=== PATIENT | female | born 1935 | race Caucasian/White ===

== ENCOUNTER 2023-08-25 01:00 | Observation (INO) | payer OTHER, SELFPAY ==
[2023-08-24 21:55] VITALS: BP 208/52
[2023-08-24 22:00] VITALS: BP 185/54; BMI 25.5
[2023-08-24 22:18] LABS: % Basophils 0.7 % (0-2); % Eosinophils 2.1 % (0-6); % Immature Granulocytes 0.3 % (0-0.5); % Lymphocytes 24.3 % (20.5-51.1); % Neutrophils 65.6 % (42.2-75.2); Absolute Basophils 0.1 10^3/uL (0-0.2); Absolute Eosinophils 0.2 10^3/uL (0-0.7); Absolute Lymphocytes 1.9 10^3/uL (1.2-3.4); Absolute Monocytes 0.5 10^3/uL (0.1-0.6); Hematocrit 32.8 % (37.0-47.0); Hemoglobin 11.3 g/dL (12.0-16.0); Mean Corp Hgb Conc. 34.5 g/dL (33.0-37.0); Mean Corpuscular Hgb 30.6 pg (27.0-31.0); Mean Corpuscular Volume 88.9 fL (81.0-99.0); Mean Platelet Volume 10.4 fL (7.4-10.4); Nucleated Red Blood Cells % 0 %; Platelet Count 159 10^3/uL (130-400); Red Blood Cell Count 3.69 10^6/uL (4.20-5.40); Red Cell Dist. Width 12.4 % (11.5-14.5); White Blood Cell Count 7.7 10^3/uL (4.8-10.8)
[2023-08-24 22:28] LABS: INR 1.16; PT 14.8 Sec (11.4-14.6)
[2023-08-24 22:29] LABS: APTT 27.5 Sec (23.4-35.0)
[2023-08-24 22:30] LABS: ALT (SGPT) 21 U/L (0-35); AST (SGOT) 35 U/L (14-36); Alkaline Phosphatase 78 U/L (38-126); Blood Urea Nitrogen 27 mg/dl (7-17); Calcium 9.5 mg/dl (8.4-10.2); Carbon Dioxide 25 mmol/L (22-30); Chloride 102 mmol/L (98-107); Estimated Creatinine Clearance 31 ml/min; Glucose 97 mg/dl (70-99); Potassium 4.8 mmol/L (3.5-5.1); Sodium 137 mmol/L (135-145); Total Bilirubin 0.4 mg/dl (0.2-1.3); Total Protein 6.9 g/dl (6.3-8.2); eGFR 54.19
--- NOTE | 2023-08-24 22:51 | ED.CVA ---
History of Present Illness
General
Chief Complaint: CVA/TIA Symptoms
Source: patient
Exam Limitations: none
Time Seen by Provider: 08/24/23 21:43
Nursing documentation reviewed up to this point in time: agreed with
Onset of Stroke Symptoms
Onset of symptoms known: Yes
Date of onset of symptoms: 08/24/23
Time of onset of symptoms: 12:00
Travel History
Have you had any contact with someone who has COVID-19?: No
Do you have any symptoms of coronavirus? Fever > 100 degrees, chills, cough, shortness of breath, sore throat, loss of taste or smell, muscle aches, or headache?: No
History of Present Illness
History of Present Illness:
Patient with history hypertension, presents to ED secondary to sudden onset of difficulty with ambulation along with confusion, noted by spouse around noon this afternoon. Denies headache. Denies dizziness. Denies chest pain or shortness of
breath. Denies abdominal pain. Denies nausea, vomiting, or diarrhea. Denies difficulty with speech. Denies previous history of similar symptoms. Patient takes 81 mg aspirin daily.
Review of Systems
Review of Systems
Allergies reviewed?: Yes
All Other Systems: ROS reviewed and negative except as documented in HPI and ROS
Constitutional: Reports no symptoms
EENT: Reports no symptoms
Respiratory: Reports no symptoms
Cardiac: Reports no symptoms
ABD/GI: Reports no symptoms
Musculoskeletal: Reports no symptoms
Skin: Reports no symptoms
Neurological: Reports weakness and other (confusion)
Phy Exam
Physical Exam
Physical Exam:
Physical Exam
General: no apparent distress, not acutely ill. afebrile.
Head: nc/at. eomi
Neck: supple. no meningeal signs.
Heart: s1/s2 regular rate and rhythm, no murmur. equal radial pulses.
Lungs: no acute respiratory distress. clear bilaterally
Abdomen: normal bowel sounds. not tender. n
Neuro: alert and oriented. normal speech, though somewhat delayed. LLL motor: 4/5. sensation intact.
Skin: no rash
Psychiatric: well kept. interactive and cooperative
Extremities: no edema. no calf tenderness.
Course
Orders/Labs/Results
Orders:
Orders
08/24/23 20:16
CT Head W/o Iv Contrast Urgent
Comment:
Reason For Exam: tia symptoms
08/24/23 21:46
Electrocardiogram (*1) Stat
Reason for Study: Other
Other Reason for Exam: neuro symptoms
EKG- Treatment ONCE
08/24/23 22:10
Complete Blood Count/With Diff Urgent
Comprehensive Metabolic Panel Urgent
PTT Urgent
Prothrombin Time Urgent
08/25/23 00:23
Admit/Transfer Patient As Directed
Co-Sign Provider:
Level of Care: Observation services
Assign to:: Telemetry
Physician / Group: Bakari
Diagnosis: CVA / TIA
Reason for Telemetry: CVA/TIA
Date to Stop Telemetry: 08/28/23
Time to Stop Telemetry: 11:00
Code Status As Directed
Resuscitation Status: Full Code
08/25/23 01:26
Acetaminophen [Tylenol/Feverall] 650 mg RECTAL Q4HPRN PRN
Acetaminophen [Tylenol] 650 mg PO Q4HPRN PRN
08/25/23 01:26
Echo 2D MMode Color/Doppler Routine
Reason for Study: stroke/TIA
Case Management Consult ONCE
Case Management Consult: Discharge Planning
Comment: stroke/tia
Consult Notification Routine
Specialty to Notify: Physiatry
DIETARY CONSULT Routine
Reason for Consult: stroke/TIA
NEUROLOGY CONSULT Urgent
Consulting Provider: Monica Silva
Was physician already notified: Yes
Reason for consult: CVA / TIA
Fixing Machine Operator Urgent
MA [place] Routine
Comment:
Reason For Exam: stroke/TIA
Recent pill cam endoscopy?: No
MA Neck With Contrast Routine
Comment:
Reason For Exam: stroke/TIA
Recent pill cam endoscopy?: No
MR Brain Without Contrast Routine
Comment:
Reason For Exam: stroke/TIA
Recent pill cam endoscopy?: No
Activity As Directed
Activity Level: Ambulate
With Assistance
INT (Intravenous Needle Therapy) As Directed
NIH Stroke Scale As Directed
Directions: Per protocol
Comment: every shift and with any change in condition or mental status
Neurological Checks As Directed
Frequency: q4h
Additional Instructions:: q4h x 24h upon admission to the floor, then qshift & with any change in condition
and mental status
Patient Education As Directed
Type: Stroke education packet
Comment: provide to patient and family
Pneumatic Compression Sleeves As Directed
Type: Knee high
Swallow Screening CVA/TIA ONLY As Directed
Comment: NPO until swallowing screening completed
If patient FAILS swallow screening:: NPO, Speech Therapy consult, Aspiration Precautions
If patient PASSES swallow screening, diet:: Regular
Above diet order entered?: Yes- passed screening
Vital Signs As Directed
Frequency: Per unit guidelines
CXR2 [CR Chest - 2 Views ] Urgent
Comment:
Reason For Exam: SOB
Ot Eval And Treat Routine
Physiatry Consult Routine
Consulting Provider: Zacarias Lima
Was physician already notified: No
Reason for consult: stroke/TIA
Pt Eval And Treat Routine
Activity Level: Ambulate
With Assistance
Speech Therapy Eval & Treat Routine
DX Deep Vein Thrombosis Video Routine
08/25/23 06:00
Cardiovascular Evaluation IN AM
Glycohemoglobin (HgbA1c) Routine
08/25/23 08:00
Aspirin Chewable [Low Strength Aspirin] 81 mg PO DAILY
Clopidogrel Bisulfate [Plavix] 75 mg PO DAILY
Ezetimibe [Zetia] 10 mg PO DAILY
Losartan [Cozaar] 100 mg PO DAILY
Rosuvastatin Calcium [Crestor] 10 mg PO DAILY
08/28/23 11:00
DC Protocol for Telemetry ONCE
Abnormal Lab Results
08/24/23
22:10
RBC 3.69 L 10^6/uL
(4.20-5.40)
Hgb 11.3 L g/dL
(12.0-16.0)
Hct 32.8 L %
(37.0-47.0)
PT 14.8 H Sec
(11.4-14.6)
BUN 27 H mg/dl
(7-17)
08/24/23 22:10
08/24/23 22:10
Vital Signs
Initial and Last Documented VS:
Initial Vital Signs
Temp Pulse Resp Pulse Ox
98.4 F 59 18 97
08/24/23 20:07 08/24/23 20:07 08/24/23 20:07 08/24/23 20:07
Last Documented Vital Signs
Temp Pulse Resp BP Pulse Ox
97.8 F 61 18 171/62 95
08/25/23 01:20 08/25/23 01:20 08/25/23 01:20 08/25/23 01:20 08/25/23 01:20
MDM/Problems Addressed
MDM/Problems Addressed:
Patient is not a candidate for tenecteplase, secondary to greater than 6 hours of symptoms along with low NIH stroke score.
CT head report reviewed and discussed with patient and family.
Neurology () notified via [employer]. Will admit for further evaluation and treatment.
*Critical Care Note
Total Time (30-74mins, 75-104mins- exclusive of procedures): Not Applicable
ED Attending Note
-
Portions of this chart may have been created with voice recognition software.� Occasional wrong word or��sound alike� substitutions may have occurred due to the inherent limitations of voice recognition software.
Discharge Plan
Departure
Patient Disposition: Admit
Date of Disposition: 08/24/23
Time of Disposition: 22:59
Admit to: Telemetry
Presentation/result/management discussed w/ accepting MD/DO: Hospitalist
Discharge Problem:
Acute CVA (cerebrovascular accident)
Interventions
Interventions:
*Risk Screen - Suicide Last Done: 08/24/23 20:07
*General Assessment Last Done: 08/24/23 20:07
*Neglect/Abuse Screening Last Done: 08/24/23 20:07
ED- Fall Risk Assessment Last Done: 08/24/23 23:29
*ED COVID-19 Vaccine History Last Done: 08/24/23 23:23
*Nursing Disposition Last Done: 08/25/23 01:14
ED- Pulmonary Assessment Last Done: 08/24/23 22:12
ED- Neurological Assessment Last Done: 08/24/23 23:23
ED- Cardiac Assessment Last Done: 08/24/23 22:12
ED Swallowing Screen Last Done: 08/24/23 23:23
Discharge Date and Time
Discharge Date/Time: 08/25/23 01:17
[2023-08-24 23:00] VITALS: BP 187/60
[2023-08-25] VITALS (9 sets, daily range): BP systolic 127–177; BP diastolic 48–71; O2SAT 100; BMI 24.9
--- NOTE | 2023-08-25 00:27 | HPS.HSE ---
Family Physician
-
Family Physician: Cam Beauchamp
Chief Complaint
-
Weakness, Unsteady Gait
History of Present Illness
Patient is an 88y F with PMH significant for hypertension and ASCVD who presents to ED for evaluation of increased confusion and gait dysfunction. History obtained from patient and the family at the bedside. Son notes that he spoke with the
patient via phone yesterday and she seemed her usual self with no issues or complaints. Patient was doing and feeling well this AM according to her . She then complained that she 'did not feel well'. She was having some difficulty getting
around the house and had to stop and rest frequently. notes that she 'has seemed more forgetful' lately. It is difficult to pinpoint a window / timing for this symptom. Initially indicates that this has been gradually worsening,
but at times he indicates more abrupt change in the past day or so.
Patient called her PCP with her complaints and was directed to present to the ED. Her son showed up to bring them and noted that the patient was 'dragging' her L leg and required significant assistance to get into the car.
In the ED, patient has been resting comfortably and currently denies any complaints.
She denies any recent illnesses / symptoms including cough, fever, chest pain, abdominal pain, etc.
She denies any prior history of GA, stroke, etc.
Medical History
Past Medical History
Past Medical History: Reports Other
Additional Past Medical History:
Hypertension
ASCVD (Carotid Disease)
Past Surgical History: Reports Other
Additional Past Surgical History:
Right CEA
Social History
Tobacco: Non-smoker
Alcohol: None
Drug: None
Personal:
Living: With Family
Family History
Family History: Not pertinent
Allergies / Home Medications
Allergies reflects when Allergies were last updated in [facility] [facility].
Home Medications with original date entered in [facility] [facility]
Allergy/Medication List:
Allergies
Allergy/AdvReac Type Severity Reaction Status Date / Time
No Known Allergies Allergy Unverified 08/24/23 20:14
Home Medications
aspirin 81 mg tablet,delayed release 81 mg PO DAILY 08/24/23
ezetimibe 10 mg tablet 10 mg PO DAILY 08/24/23
losartan 100 mg tablet 100 mg PO DAILY 08/24/23
multivitamin 1 tab PO DAILY 08/24/23
rosuvastatin 10 mg tablet 10 mg PO DAILY 08/24/23
Review of Systems
-
History Source: Patient and Family
Constitutional: Reports Fatigue; Denies Fever or Chills
EENT: Denies Sore Throat
Respiratory: Reports Trouble Breathing; Denies Cough
Cardiac: Denies Chest Pain or Palpitations
Abdomen/GI: Denies Abdominal Pain, Nausea, Vomiting or Diarrhea
: Denies Dysuria or Frequency
Musculoskeletal: Denies Joint Pain or Edema
Neurological: Reports Weakness; Denies Dizzy or Headache
Psych: Denies Depression or Anxiety
Physical Exam
Vital Signs
Vital Signs
Temp Pulse Resp BP Pulse Ox
98.4 F 63 21 177/50 96
08/24/23 20:07 08/25/23 00:01 08/25/23 00:01 08/25/23 00:01 08/25/23 00:01
Physical Exam
General: Other (88y F in no acute distress.)
HEENT: Moist mucous membranes and PERRLA
Respiratory: Clear; No Wheezes, Rales or Rhonchi
Cardiac: S1/S2, Regular Rhythm and Murmur (II/ REGINO)
GI: Soft, Non Tender, Non Distended and Normal Bowel Sounds
Musculoskeletal: No Clubbing, No Cyanosis and No Edema
Neuro: Awake, Alert and Other (Minimal L hand manager of care weakness in this R-hand dominant patient. LLE weakness evident in drift with straight leg raise and weakness in dorsiflexion at the ankle. Knee extension / plantarflexion seems intact. No
appreciable sensory deficits. Somewhat impaired heel to rock testing on the L. )
Laboratory Results
-
08/24/23 22:10
08/24/23 22:10
Laboratory Results
PT 14.8 Sec (11.4-14.6) H 08/24/23 22:10
INR 1.16 08/24/23 22:10
APTT 27.5 Sec (23.4-35.0) 08/24/23 22:10
Total Bilirubin 0.4 mg/dl (0.2-1.3) 08/24/23 22:10
AST 35 U/L (14-36) 08/24/23 22:10
ALT 21 U/L (0-35) 08/24/23 22:10
Alkaline Phosphatase 78 U/L (38-126) 08/24/23 22:10
Impression/Plan
-
A/P: Patient is an 88y F with PMH significant for ASCVD and hypertension who presents to ED complaining of increased confusion and ambulatory dysfunction noted at home today.
CVA / TIA
- Observe overnight for further evaluation and treatment.
- CT done in the ED shows old lacunar infarct (R basal ganglia) and questionable subacute infarct in the L parietal area.
- Subacute / possible lesion is not consistent with her current presentation.
- Patient with no clinical history of prior CVA, but has poorly controlled HTN and known history of carotid disease s/p prior R CEA.
- Check MRI / MRA brain in the AM for further evaluation.
- Follow neuro exam for any changes.
- Neurology evaluation in the AM.
- PT / OT / PM&R evaluations in the AM.
- Continue ASA and add Plavix for now.
- Continue statin.
- Allow some degree of hypertension for now, but adjust med regimen as needed for goal of normotension prior to discharge.
Hypertension
- Poorly controlled at baseline per patient.
- Continue losartan for now.
- As noted above, adjust regimen for improved BP control prior to discharge.
Memory Impairment
- Suspect this is recognition of dementia - though onset / timing is not at all clear.
- Certainly imaging findings with prior / clinically unrecognized strokes could support vascular dementia possibility.
- Follow for any new / worsening symptoms.
- Neuro evaluation as noted above.
DVT Prophylaxis: SCDs
Code Status: Full
--- NOTE | 2023-08-25 01:20 | PTCARENOTE ---
Pt arrived to unit from ED and ambulated with x1 assist standby from stretcher into bed. Pt is AAOx3, no complaints of pain. Pt oriented to room, call sierra within reach.
--- NOTE | 2023-08-25 08:35 | CON.NEURO ---
Consultation
Order
Date of Consultation: 08/25/23
Reason for Consult: Stroke
CC: none
HPI: This is an 88-year-old RH woman who presented to [facility] on August 24, 2023 with worsening of encephalopathy and ambulatory dysfunction.
According to the patient she developed an acute left leg weakness and difficulty walking that began yesterday morning. She denies any numbness, change in speech, vision or issues with her left arm. The patient also experienced left knee pain and a
cramp in her left leg this morning. No reports of radicular back pain, recent fall.
ER VS: 208/52, 59, afebrile
EKG: sinus bradycardia, QTc Int : 455 ms
PDMP: none
CT head�chronic right basal ganglia infarct, left parietal lobe subcortical hypodensity
Labs: Normal WBCs, sodium, creatinine, platelets�159
PMH:R ICA stenosis, HTN, DLP, OA
PSH: R CEA, bilateral cataract surgery
SH: , non-smoker; retired RN; independent in ADL
FH:father-AD
All: NKDA
ROS:Constitutional: Negative. Negative for chills, fever and unexpected weight change.
HENT: Positive for hearing impairment
Eyes: Negative. Negative for photophobia, pain and visual disturbance.
Respiratory: Negative for cough, choking and shortness of breath.
Cardiovascular: Negative for chest pain, palpitations and leg swelling.
Gastrointestinal: Negative for abdominal pain and vomiting.
Endocrine: Negative. Negative for cold intolerance.
Genitourinary: Negative for dysuria, flank pain and urgency.
Musculoskeletal: Negative for back pain, gait problem, neck pain and neck stiffness.
Skin: Negative for rash.
Allergic/Immunologic: Negative. Negative for immunocompromised state.
Neurological: Positive for left leg weakness,
Psychiatric/Behavioral: Negative for behavioral problems, confusion and hallucinations.
General: Well developed. In no acute distress.
Cardio: Regular rate and rhythm without murmur. Extremities are without cyanosis or edema.
Neuro:
Mental Status: Alert, oriented to person, place, month, year, not to date. Preserved attention. Impaired comprehension. Follows simple requests consistently. No hemineglect.
Cranial Nerves: . Pupils are equally round, surgical. EOMs full. Visual sexton full to confrontation. No ptosis. No nystagmus. V1-V3 intact to light touch and pinprick bilaterally, symmetric. Face symmetric. Impaired hearing AU. The palate
elevated well. SCMs and traps 5/5. Tongue midline. No dysarthria.
Motor: Normal bulk and tone. No pronator or arm drift. Strength 5/5 throughout. No clonus.
Reflexes: 3+
Sensory: Normal vibration at the toes
Coordination: No dysmetria or tremor.
Gait: deferred
Assessment and Plan:
I. Hypertensive emergency.
II. Left parietal hypodensity, rule out subacute infarct
III. History of right CEA
IV. Vascular encephalopathy
-Continue Telemetry monitoring.
-Aspiration precautions.
-CTA head and neck
-Brain MRI without azeb
-Cautious lowering of BP by approximately 15 % during the first 24 hours is SBP >220 mmHg or diastolic blood pressure >120 mmHg;
-TTE with bubble studies
-Continue ASA 81 mg QD
-Lipitor 40 mg QHS.
-Please check HbA1C, LDL, vitamin B12, TFTs
-DVT prophylaxis.
I personally reviewed all radiology and labs along with past medical records pertinent to current medical problems. Total time spent in patient care is 60 minutes.
Thank you for allowing us to participate in the care of this patient. We will continue to follow. Please do not hesitate to contact us with any questions or concerns.
Subjective/Objective
Subjective Data
Date of Service: August 25, 2023
Objective Data
Vital Signs
Temp Pulse Resp BP Pulse Ox
36.4 C 60 16 160/71 98
08/25/23 07:20 08/25/23 07:20 08/25/23 07:20 08/25/23 07:20 08/25/23 07:20
Lab Results
08/24/23 22:10
08/24/23 22:10
PT 14.8 Sec (11.4-14.6) H 08/24/23 22:10
INR 1.16 08/24/23 22:10
APTT 27.5 Sec (23.4-35.0) 08/24/23 22:10
Sodium 137 mmol/L (135-145) 08/24/23 22:10
Potassium 4.8 mmol/L (3.5-5.1) 08/24/23 22:10
BUN 27 mg/dl (7-17) H 08/24/23 22:10
Glucose 97 mg/dl (70-99) 08/24/23 22:10
Calcium 9.5 mg/dl (8.4-10.2) 08/24/23 22:10
Patient Allergies
No Known Allergies Allergy (Unverified 08/24/23 20:14)
Medications
-
Active Medications
Generic Name Dose Route Start Last Admin
Trade Name Freq PRN Reason Stop Dose Admin
Acetaminophen 650 mg 08/25/23 01:26
Acetaminophen 650 Mg Rectal Suppository RECTAL 09/22/23 01:25
Q4HPRN PRN
ESQUIVEL, mild pain, or temp >100.4F
Acetaminophen 650 mg 08/25/23 01:26
Acetaminophen 325 Mg Tablet PO 09/22/23 01:25
Q4HPRN PRN
ESQUIVEL, mild pain, or temp >100.4F
Aspirin 81 mg 08/25/23 08:00
Aspirin 81 Mg Chewable Tablet PO 09/22/23 07:59
DAILY GURINDER
Clopidogrel Bisulfate 75 mg 08/25/23 08:00
Clopidogrel 75 Mg Tablet PO 09/22/23 07:59
DAILY GURINDER
Ezetimibe 10 mg 08/25/23 08:00
Ezetimibe (Zetia) 10 Mg Tablet PO 09/22/23 07:59
DAILY GURINDER
Losartan Potassium 100 mg 08/25/23 08:00
Losartan 100 Mg Tablet PO 09/22/23 07:59
DAILY GURINDER
Rosuvastatin Calcium 10 mg 08/25/23 08:00
Rosuvastatin (Crestor) 10 Mg Tablet PO 09/22/23 07:59
DAILY GURINDER
Sodium Chloride 0 flush 08/25/23 02:00
Sodium Chloride 0.9% (Flush) Syringe IV 09/22/23 01:59
PER PROTOCOL GURINDER
Home Medications
Medication Instructions Recorded
aspirin 81 mg tablet,delayed 81 mg PO DAILY 08/24/23
release
ezetimibe 10 mg tablet 10 mg PO DAILY 08/24/23
losartan 100 mg tablet 100 mg PO DAILY 08/24/23
multivitamin 1 tab PO DAILY 08/24/23
rosuvastatin 10 mg tablet 10 mg PO DAILY 08/24/23
Vital Signs and Labs
-
Vital Signs and Labs:
Vital Signs
Temp Pulse Resp BP Pulse Ox
36.4 C 60 16 160/71 98
08/25/23 07:20 08/25/23 07:20 08/25/23 07:20 08/25/23 07:20 08/25/23 07:20
Lab Results
08/24/23 22:10
08/24/23 22:10
PT 14.8 Sec (11.4-14.6) H 08/24/23 22:10
INR 1.16 08/24/23 22:10
APTT 27.5 Sec (23.4-35.0) 08/24/23 22:10
Sodium 137 mmol/L (135-145) 08/24/23 22:10
Potassium 4.8 mmol/L (3.5-5.1) 08/24/23 22:10
BUN 27 mg/dl (7-17) H 08/24/23 22:10
Glucose 97 mg/dl (70-99) 08/24/23 22:10
Calcium 9.5 mg/dl (8.4-10.2) 08/24/23 22:10
LDL Cholesterol, Calc 60 mg/dl 08/25/23 06:52
Home Medications
-
Home Medications
aspirin 81 mg tablet,delayed release 81 mg PO DAILY 08/24/23
ezetimibe 10 mg tablet 10 mg PO DAILY 08/24/23
losartan 100 mg tablet 100 mg PO DAILY 08/24/23
multivitamin 1 tab PO DAILY 08/24/23
rosuvastatin 10 mg tablet 10 mg PO DAILY 08/24/23
Medications
-
Medications:
Generic Name Dose Route Start Last Admin
Trade Name Freq PRN Reason Stop Dose Admin
Acetaminophen 650 mg 08/25/23 01:26
Acetaminophen 650 Mg Rectal Suppository RECTAL 09/22/23 01:25
Q4HPRN PRN
ESQIUVEL, mild pain, or temp >100.4F
Acetaminophen 650 mg 08/25/23 01:26
Acetaminophen 325 Mg Tablet PO 09/22/23 01:25
Q4HPRN PRN
ESQUIVEL, mild pain, or temp >100.4F
Aspirin 81 mg 08/25/23 08:00 08/25/23 09:09
Aspirin 81 Mg Chewable Tablet PO 09/22/23 07:59 81 mg
DAILY GURINDER Administration
Clopidogrel Bisulfate 75 mg 08/25/23 08:00 08/25/23 09:09
Clopidogrel 75 Mg Tablet PO 09/22/23 07:59 75 mg
DAILY GURINDER Administration
Ezetimibe 10 mg 08/25/23 08:00 08/25/23 09:09
Ezetimibe (Zetia) 10 Mg Tablet PO 09/22/23 07:59 10 mg
DAILY GURINDER Administration
Losartan Potassium 100 mg 08/25/23 08:00 08/25/23 09:09
Losartan 100 Mg Tablet PO 09/22/23 07:59 100 mg
DAILY GURINDER Administration
Rosuvastatin Calcium 10 mg 08/25/23 08:00 08/25/23 09:09
Rosuvastatin (Crestor) 10 Mg Tablet PO 09/22/23 07:59 10 mg
DAILY GURINDER Administration
Sodium Chloride 0 flush 08/25/23 02:00
Sodium Chloride 0.9% (Flush) Syringe IV 09/22/23 01:59
PER PROTOCOL GURINDER
[2023-08-25] MEDS: COZAAR 100 MG PO (09:09)
[2023-08-25] MEDS: LOW STRENGTH ASPIRIN 81 MG PO (09:09)
[2023-08-25] MEDS: CRESTOR 10 MG PO (09:09)
[2023-08-25] MEDS: PLAVIX 75 MG PO (09:09)
[2023-08-25] MEDS: ZETIA 10 MG PO (09:09)
--- NOTE | 2023-08-25 09:22 | PTOTSP ---
ST Evaluation
Oropharyngeal function appears intact at the bedside. Speech/language at reported baseline. Pt reports memory decline however no worse than what it is at baseline.
Pt received awake/alert oriented x4 at the bedside. Verbalized feeling upset due to finding stroke handouts at the bedside. Verbal support provided. Pt reports memory decline however no worse than what it is at baseline. Education re: pursue
outpatient speech-cognitive/memory therapy as needed.
HOB raised upright for PO trials of puree, regular solids and thin liquids. Demo functional mastication and bolus was orally cleared. Thin liquids by straw sip swallow appears prompt. No overt s/sx of aspiration observed.
Recommend
1. Continue Regular Solids / Thin liquids
2. Standard aspiration precautions
3. Meds oral per pt preference and RN discretion
4. No acute SHADOWGRAPH OPERATOR needs - advised outpatient follow up for cog/memory as indicated
[2023-08-25 10:12] LABS: HDL Cholesterol 74 mg/dl; LDL Cholesterol, Calculated 60 mg/dl; Total Cholesterol 142 mg/dl (50-199); Triglyceride 44 mg/dl (10-149); Very Low Density Lipoprotein 8 mg/dl (0-30)
--- NOTE | 2023-08-25 11:27 | W.PN.HOSP.TC ---
Today's Communication/Plan
-
Cervical spine MRI
Neurosurgery consult
PT/OT
Assessment / Plan
Assessment / Plan
Gen-AAOx3, NAD
HEENT-NC, AT, anicteric, clear oral mm
Neck-supple
CV-reg, no M, +S1/S2
Lungs-clear B/L
Abd-soft, NT, ND
Ext-no edema
Musculoskeletal-no cyanosis, clubbing
Skin-warm and dry
Neuro-left lower extremity weakness
Psych-calm, cooperative
Left lower extremity weakness -no evidence of stroke on brain MRI. Neurology input noted.
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 Will check cervical spine MRI. Consult neurosurgery. Discussed with neurology.
Essential hypertension with hypertensive urgency -blood pressure improving. She does not check her blood pressure at home. Denies missing doses of her blood pressure meds.
Hyperlipidemia - continue Crestor.
Carotid artery disease -history of right carotid endarterectomy.
Normocytic anemia -unknown etiology or acuity. Monitor for now.
Cognitive dysfunction -likely early dementia versus mild cognitive dysfunction. Will need outpatient follow-up.
Full code
PT/OT
Anticipated Discharge: 24 - 48 hours
Subjective/Interval History
-
Date of Service: August 25, 2023
Patient seen and examined. No complaints.
Objective Data
-
Vital Signs:
Vital Signs
Temp Pulse Resp BP Pulse Ox
97.6 F 60 16 160/71 98
08/25/23 07:20 08/25/23 07:20 08/25/23 07:20 08/25/23 07:20 08/25/23 07:20
I&O
08/24/23 08/25/23 08/26/23
06:59 06:59 06:59
Intake Total 120 / 120
Output Total 240 / 240
Balance -120 / -120
Review of Systems
-
History Source: Patient
All other systems: Reviewed and negative
[2023-08-25 12:36] LABS: TSH Reflex To Free T4 3.92 uIU/ml (0.47-4.68)
[2023-08-25 12:55] LABS: Vitamin B12 548 pg/ml (239-931)
[2023-08-25 14:23] LABS: Glycohemoglobin (HgbA1c) 5.6 % (4.0-5.6)
--- NOTE | 2023-08-25 15:06 | CON.NS ---
Consultation
-
Date/Time Consultation Performed: 08/25/2023, 15:06
Performing Provider: Angie
Chief Complaint
History of Present Illness
This neurosurgical consultation an 80-year-old female the past medical history of hypertension, ASCVD, who presents with with increased confusion and gait dysfunction. According to chart report, patient had acute onset of feeling 'unwell'. She was
having difficulty ambulating around the house. Additionally, there also reports the patient may be having difficulty with memory. This may be gradually worsening.Patient was evaluated by neurology, and advised to undergo a brain MRI. Brain MRI
was negative for acute stroke. However, there is noted possible cervical stenosis with cord compression on the T1 brain sagittal cuts.
Patient seen and examined. Daughter is at bedside. is at bedside. Patient reports that she presents to the hospital more so because of difficulty ambulating, secondary to focal left leg and specifically knee pain. She reports that she
was doing some increased work out in the yard over the last several days, and she believes that this is what was contributing to her difficulty ambulating. She does admit that she has left arm and left leg weakness, but she cannot recall whether
this is new or old. She denies any obvious difficulties with neck pain, or upper extremity radiculopathy. She denies any dexterity issues using her hands, but does state that she has trouble threading her needle but feels that this is secondary to
vision issues. She denies any recent falls.
Review of Systems
-
10 point review of systems was performed, which included constitutional, ENT, cardiovascular, respiratory, GI, , neurologic, endocrinology, hematologic, psychiatric, musculoskeletal, which was negative, except for stated in HPI.
Medication and Allergies
Home Medications
Home Medications
Medication Instructions Recorded
aspirin 81 mg tablet,delayed 81 mg PO DAILY 08/24/23
release
ezetimibe 10 mg tablet 10 mg PO DAILY 08/24/23
losartan 100 mg tablet 100 mg PO DAILY 08/24/23
multivitamin 1 tab PO DAILY 08/24/23
rosuvastatin 10 mg tablet 10 mg PO DAILY 08/24/23
Allergies
Allergies
Allergy/AdvReac Type Severity Reaction Status Date / Time
No Known Allergies Allergy Unverified 08/24/23 20:14
Physical Exam
-
Exam:
Awake, alert, pleasant
Pupils are equal and reactive to light.
Extraocular movements are full without any nystagmus.
Face is symmetric
Tongue is midline
Motor: 5/5 strength in right arm and right leg. 4+/5 strength in left arm and left leg.
No evidence of pronator drift.
Reflexes are 2+ and symmetric bilaterally in upper lower extremities.
Sensation to light touch is intact bilaterally
No evidence of clonus or Jesse sign
Head is normocephalic atraumatic
Neck is supple
Breathing is nonlabored
Regular rate and rhythm
Abdomen is soft, nondistended
Extremities are warm.
Exams:� MR Brain Without Contrast
CPT: [id number]
PROCEDURE: MR Brain Without Contrast
CLINICAL INDICATION: Sudden onset of confusion and difficulty with ambulation. Acute stroke. Transient ischemic attack (TIA). Acute cerebrovascular accident. Hypertension.
TECHNIQUE: An MRI examination of the brain was performed without intravenous contrast on a 1.5 Frannie magnet. 3-D thin section T1 gradient echo, axial diffusion, axial T2 gradient echo, axial T2, axial FLAIR , and coronal T2-weighted imaging
sequences were obtained.
COMPARISON: Comparison is made with a noncontrast CT examination of the head performed 08/24/2023.
FINDINGS:
There is no MRI evidence for restricted diffusion to suggest acute infarction.
There is a large amount of low T1 and high T2/FLAIR signal intensity in the white matter of the left parietal lobe. There is mild white matter signal abnormality in the right parietal lobe. There is a mild to moderate amount of periventricular white
matter signal abnormality in the frontal lobes. There is asymmetric decreased T1 and hyperintense T2/FLAIR signal in the left putamen.
There is mild to moderate diffuse cerebral and cerebellar volume loss. There is mild ex vacuo dilatation of the ventricular system. There is no midline shift or herniation. There is no MRI evidence for acute or chronic intracranial hemorrhage. There
are no extra-axial fluid collections. Both intracranial vertebral arteries are tortuous causing mild compression on the sides of the medulla.
There are bilateral lens replacements in the globes. There is mild mucosal thickening throughout the ethmoid air cells and in the left maxillary sinus. The mastoid air cells are clear.
There is moderate thickening of the transverse ligament posterior to the dens. There is a small to moderate-sized central disc herniation at C3/C4. There is severe discogenic degenerative disease at C4/C5 and C5/C6. There is a large central
disc-osteophyte complex at C5/C6 causing moderate to severe spinal cord compression and central canal stenosis. A central disc-osteophyte complex at C4/C5 causes mild spinal cord compression and central canal stenosis.
IMPRESSION:
1. � No MRI evidence for acute infarct or intracranial hemorrhage.
2. � Moderate white matter leukoaraiosis in the frontal and parietal lobes (greatest in the left parietal lobe).
3. � Mild signal abnormality in the left putamen which could be secondary to chronic ischemia.
4. � Mild to moderate diffuse cerebral volume loss.
5. � SEVERE DISCOGENIC DEGENERATIVE DISEASE at C5/C6 with a large disc-osteophyte complex causing MODERATE to SEVERE SPINAL CORD COMPRESSION and CENTRAL CANAL STENOSIS.
I reviewed the imaging studies, and agree with report above. There is suggestion of disc osteophyte complex at C5-C6 causing cord impingement.
Problems
-
Problem Status Onset Code
Acute CVA (cerebrovascular accident) I63.9
Assessment / Plan
-
This is an 88-year-old female who presents with progressive cognitive difficulties, memory difficulties, ambulatory dysfunction, with acute on subacute decline of ambulatory function. Brain MRI was negative for stroke. However, on T1 sagittal cuts
there was note made of possible cervical cord compression.
Recommend MRI of the cervical spine to better evaluate for cervical spondylosis/stenosis.
Extensive discussion was held with the patient, the patient's daughter at bedside. Patient cannot recall whether or not her ambulatory dysfunction is mainly secondary to overall weakness of the left leg, or pain related weakness of the left leg. I
have advised her to continue to monitor this, especially when working with physical therapy.
If the patient has difficulty ambulating more so related to pain in the left leg/knee, then unlikely that cervical spondylotic changes/stenosis would be acutely causing the symptoms.
--- NOTE | 2023-08-25 17:01 | CM ---
inspection manager reviewed patient's chart and met with patient spouse and daughter at bedside, GAN letter provided, patient lives with spouse in a 2 story home, patient is independent with adl's and ambulation, no dme, hospice case manager reviewed physical
therapy with patient, spouse and daughter and reviewed recommendations of skilled placement and patient refuses to go to a skilled facility. Patient has prescription plan and uses [facility] pharmacy.
PCP: Dr. Beauchamp
Plan; Patient wants to return to home at discharge.
[2023-08-26 03:28] VITALS: BP 154/56
[2023-08-26 07:00] VITALS: BP 151/60
[2023-08-26] MEDS: PLAVIX 75 MG PO (08:35)
[2023-08-26] MEDS: CRESTOR 10 MG PO (08:35)
[2023-08-26] MEDS: LOW STRENGTH ASPIRIN 81 MG PO (08:35)
[2023-08-26] MEDS: ZETIA 10 MG PO (08:35)
[2023-08-26] MEDS: COZAAR 100 MG PO (08:42)
--- NOTE | 2023-08-26 13:17 | W.PN.NEURO.1 ---
Today's Communication / Plan
-
.
Subjective/Objective
Subjective Data
Date of Service: August 26, 2023
Ms. Lira reports no complaints. No recurrent left leg weakness since admission.
Brain MRI showed no acute abnormalities
MRA head and neck�no hemodynamically significant stenosis.
C spine MRI wo [facility](08/26/2023)-severe central spinal canal stenosis at C5-6 with cord compression.
Hemoglobin A1c�5.6, LDL�60
Tele-NSR
PMH: C5-C6 compressive myelopathy, h/o R ICA stenosis, HTN, DLP, OA
PSH: R CEA, bilateral cataract surgery
SH: , non-smoker; retired RN; independent in ADL
FH:father-AD
All: NKDA
ROS:Constitutional: Negative. Negative for chills, fever and unexpected weight change.
HENT: Positive for hearing impairment
Eyes: Negative. Negative for photophobia, pain and visual disturbance.
Respiratory: Negative for cough, choking and shortness of breath.
Cardiovascular: Negative for chest pain, palpitations and leg swelling.
Gastrointestinal: Negative for abdominal pain and vomiting.
Endocrine: Negative. Negative for cold intolerance.
Genitourinary: Negative for dysuria, flank pain and urgency.
Musculoskeletal: Negative for back pain, gait problem, neck pain and neck stiffness.
Skin: Negative for rash.
Allergic/Immunologic: Negative. Negative for immunocompromised state.
Neurological: Positive for left leg weakness,
Psychiatric/Behavioral: Negative for behavioral problems, confusion and hallucinations.
�
�
General: Well developed. In no acute distress.
Cardio: Regular rate and rhythm without murmur. Extremities are without cyanosis or edema.
Neuro:
Mental Status: Alert, oriented to person, place, month, year, not to date.� Preserved attention.� Impaired comprehension.� Follows simple requests consistently.� No hemineglect.
Cranial Nerves: . Pupils are equally round, surgical.� EOMs full.� Visual sexton full to confrontation.� No ptosis.� No nystagmus.� V1-V3 intact to light touch and pinprick bilaterally, symmetric.� Face symmetric.� Impaired hearing AU.� The palate
elevated well.� SCMs and traps 5/5.� Tongue midline.� No dysarthria.
Motor:� � � � Normal bulk and tone.� No pronator or arm drift.� Strength 5/5 throughout. No clonus.
Reflexes: � � � � � 3+ bilateral plantar response�extensor
Coordination: No dysmetria or tremor.�
Gait: � � � � � deferred
Assessment and Plan:
�
I.� TIA. Hypertensive emergency.�
II. C5-C6 compressive cervical myelopathy.
III.� History of right CEA
IV. Mild encephalopathy
-Continue Telemetry monitoring.
-Fall precautions.
-Continue ASA 81 mg QD
-Plavix 75 mg once a day for 3 weeks
-Lipitor 40 mg QHS.
-TTE
-Cardiac consult�OP Holter monitoring
-neurosurgery follow up
-DVT prophylaxis.
I personally reviewed all radiology and labs along with past medical records pertinent to current medical problems. Total time spent in patient care is 35 minutes.
Objective Data
Vital Signs
Temp Pulse Resp BP Pulse Ox
36.8 C 63 18 151/60 96
08/26/23 07:00 08/26/23 07:00 08/26/23 07:00 08/26/23 07:00 08/26/23 07:00
Lab Results
08/24/23 22:10
08/24/23 22:10
PT 14.8 Sec (11.4-14.6) H 08/24/23 22:10
INR 1.16 08/24/23 22:10
APTT 27.5 Sec (23.4-35.0) 08/24/23 22:10
Sodium 137 mmol/L (135-145) 08/24/23 22:10
Potassium 4.8 mmol/L (3.5-5.1) 08/24/23 22:10
BUN 27 mg/dl (7-17) H 08/24/23 22:10
Glucose 97 mg/dl (70-99) 08/24/23 22:10
Calcium 9.5 mg/dl (8.4-10.2) 08/24/23 22:10
LDL Cholesterol, Calc 60 mg/dl 08/25/23 06:52
Vitamin B12 548 pg/ml (297-261) 08/24/23 22:10
Patient Allergies
No Known Allergies Allergy (Unverified 08/24/23 20:14)
--- NOTE | 2023-08-26 13:27 | W.PN.HOSP.TC ---
Addendum entered and electronically signed by Uday Goode DO 08/26/23 15:38:
Dr Angie mcintyre with discharge today, outpatient follow up.
Original Note:
Today's Communication/Plan
-
Await neurosurgery input
Assessment / Plan
Assessment / Plan
Gen-AAOx3, NAD
HEENT-NC, AT, anicteric, clear oral mm
Neck-supple
CV-reg, no M, +S1/S2
Lungs-clear B/L
Abd-soft, NT, ND
Ext-no edema
Musculoskeletal-no cyanosis, clubbing
Skin-warm and dry
Neuro-left lower extremity weakness
Psych-calm, cooperative
TIA -left lower extremity weakness resolved. Brain MRI negative for acute stroke. Neurology recommending outpatient it systems engineer, TTE. Dual antiplatelet therapy for 3 weeks then discontinue Plavix and continue aspirin. Continue rosuvastatin.
I requested an outpatient it systems engineer via [place] text to Dr. Evan Patel.
Cervical spinal cord compression -cervical spine MRI confirms severe central canal stenosis due to moderate-sized central disc herniation with severe cord compression of C5-6 with associated myelopathy and moderate to severe bilateral foraminal
narrowing. Broad-based disc bulge and soft and hard disc protrusion at C4-5 with mild cord compression. Awaiting neurosurgery input.
Essential hypertension with hypertensive urgency -blood pressure improving. She does not check her blood pressure at home. Denies missing doses of her blood pressure meds.
Hyperlipidemia - continue Crestor.
Carotid artery disease -history of right carotid endarterectomy.
Normocytic anemia -unknown etiology or acuity. Monitor for now.
Cognitive dysfunction -likely early dementia versus mild cognitive dysfunction. Will need outpatient follow-up.
Full code
PT/OT -recommendation is SNF but patient is refusing and wants to go home to take care of her elderly .
Anticipated Discharge: Within 24 hours
Subjective/Interval History
-
Date of Service: August 26, 2023
Patient seen and examined. No complaints. Eager to go home.
Objective Data
-
Vital Signs:
Vital Signs
Temp Pulse Resp BP Pulse Ox
98.2 F 63 18 151/60 96
08/26/23 07:00 08/26/23 07:00 08/26/23 07:00 08/26/23 07:00 08/26/23 07:00
I&O
08/25/23 08/26/23 08/27/23
06:59 06:59 06:59
Intake Total 120 / 120 1800 / 1800
Output Total 240 / 240
Balance -120 / -120 1800 / 1800
Review of Systems
-
History Source: Patient
All other systems: Reviewed and negative
--- NOTE | 2023-08-26 14:51 | CM ---
Patient seen bedside with daughter and in room.
PT recommending skilled rehab, however patient wants home.
Discussed options and [facility] chosen.
Referral placed.
Plan: home with [facility]
[2023-08-26 15:00] VITALS: BP 161/54
--- NOTE | 2023-08-26 15:34 | PN.NS ---
Subjective
-
Patient seen examined. Both daughter, and son are at bedside. Patient sitting in chair. Patient continues to be unable to recall whether her gait instability/difficulty with ambulating when she presented with secondary to pain, or weakness.
Additional history obtained from patient's son, who witnessed the incident, reports that mother was dragging left leg.
Physical Exam
-
Exam:
Exam:
Awake, alert, pleasant
Pupils are equal and reactive to light.
Extraocular movements are full without any nystagmus.
Face is symmetric
Tongue is midline
Motor: 5/5 strength in right arm and right leg.� 4+/5 strength in left arm and left leg.
No evidence of pronator drift.
Reflexes are 2+ and symmetric bilaterally in upper lower extremities.
Sensation to light touch is intact bilaterally
No evidence of clonus or Jesse sign
Head is normocephalic atraumatic
Neck is supple
Breathing is nonlabored
Regular rate and rhythm
Abdomen is soft, nondistended
Extremities are warm.
Exams:� MR Cervical Spine Without
CPT: [id number]
PROCEDURE: MR Cervical Spine Without
CLINICAL INDICATION: Follow-up to brain MRI which described severe degenerative change in the cervical spine causing central canal stenosis and cord compression.
TECHNIQUE: Unenhanced MRI of the cervical spine was performed. Images were obtained in the sagittal plane with T1 and T2 weighting, and with T2 weighted gradient echo technique and T2 weighting in the oblique axial plane. Scanned on a 1.5 Frannie
magnet.
COMPARISON: Brain MRI the day before.
FINDINGS:
The vertebral bodies are normal in height and configuration without fracture.
There is moderate to severe disk narrowing at C4-5, C5-6 and C6-7, with spur formation both anteriorly and posteriorly. There is mild anterior listhesis of T2 on T3, with disk bulging and T3 on T4, with mild disk bulging.
Craniocervical junction is patent.
C2-C3: No disk herniation. Mild facet arthropathy.
C3-C4: Moderate broad-based diffuse disk bulge and a tiny central shallow disk protrusion. No cord compression. Facet and uncovertebral hypertrophy with moderate to severe left foraminal narrowing.
C4-C5: There is broad-based diffuse disk bulge, with soft and hard disk protrusion diffusely flattening the ventral surface of the cord. Mild central canal stenosis. Facet and uncovertebral hypertrophy contribute to mild foraminal narrowing
bilaterally. Right greater than left.
C5-C6: As noted on the brain MRI the day before there is a moderate-sized central disk herniation causing cord compression, severe, and severe central canal stenosis. There is uncovertebral and facet hypertrophy contributing to moderate to severe
bilateral foraminal narrowing left greater than right. Myelopathy noted.
C6-C7: There is moderate broad-based diffuse soft and hard disk protrusion diffusely. This flattens the ventral surface of the cord causing cord compression. There is mild bilateral foraminal narrowing.
C7-T1: No focal disk herniation. The exit foramen are patent. Probable small perineural cyst on the left.
The rest of the cervical cord is normal in caliber without compression or myelopathy.
IMPRESSION:
1. � There is severe central canal stenosis due to moderate-sized central disk herniation with severe cord compression at C5-6, with associated myelopathy and moderate to severe bilateral foraminal narrowing.
2. � Broad-based disk bulge and soft and hard disk protrusion at C4-5 with mild cord compression.
3. � Tiny central shallow disk protrusion at C3-4 without cord compression. Moderate to severe left foraminal narrowing.
4. � Broad-based soft and hard disk protrusion diffusely at C6-7 with mild cord compression.
5. � Disc bulging at T2-3, may cause minimal cord compression. No axial images at this level.
Electronically signed by Kimberly Ocampo MD 08/26/2023 12:55 PM
I personally reviewed the MRI images, and agree with the report above. There is significant disc osteophyte complex at C5-C6 which causes cord signal changes and spinal cord edema at this level.There is an additional discussion for complex to see
67, which also causes mild to moderate cord compression.
Problems
-
Problem Status Onset Code
Acute CVA (cerebrovascular accident) I63.9
Assessment / Plan
-
This is an 88-year-old female who presents with progressive cognitive difficulties, memory difficulties, ambulatory dysfunction, with acute on subacute decline of ambulatory function. Brain MRI was negative for stroke. However, on T1 sagittal cuts
there was note made of possible cervical cord compression.
MRI results were thoroughly reviewed with the patient, patient's , and patient's 2 children. I discussed with him that her MRI demonstrates severe spinal cord compression secondary to spondylosis at C5-C6, C6-C7. Ultimately, this would
require surgical decompression. However, the patient reports that she is unable to recall whether her symptoms at presentation were acute or have been subacute in nature. She is unable to tell me, today, whether or not her gait has returned to
baseline definitively. This is because she has not been able to ambulate for prolonged distances. I have advised her and her family to closely monitor after discharge, and to initiate physical therapy. I have advised her to follow-up with me in 4
weeks, or sooner should her symptoms progress or worsen. If indeed she continues to have persistent symptoms of left-sided weakness, and symptomatology consistent with myelopathy, she will benefit from cervical decompression and fusion. I have
also advised her of the risks of falling and foregoing surgery, which could result in quadriparesis. She and family expressed understanding of this and are agreeable to follow-up as outpatient.
Patient can go home per my specialty: Today
Today's Communication
-
Discussed thoroughly with hospitalist, nurse, patient's children, patient, and at bedside.
--- NOTE | 2023-08-26 15:39 | W.DS.TRANS ---
DC Summary - Bar Finish Operator
-
Discharge Instructions:
Discharge Diagnosis/Procedures Transient ischemic attack, cervical spinal cord
stenosis
Diet Low Cholesterol,Low Fat
Activity As tolerated
Driving Restrictions As prior to admission
Bathing Restrictions None
Other Services PT
Instructions:
Stand-Alone Forms:
Changes to Home Medications: No
Discharge Medications:
DC Medications w/original date entered in [employer]
aspirin 81 mg tablet,delayed release 81 mg PO DAILY Blood Clot Prevention/Tx 08/24/23
ezetimibe 10 mg tablet 10 mg PO DAILY High Cholesterol 08/24/23
losartan 100 mg tablet 100 mg PO DAILY Blood Pressure 08/24/23
multivitamin 1 tab PO DAILY Supplement 08/24/23
rosuvastatin 10 mg tablet 10 mg PO DAILY High Cholesterol 08/24/23
clopidogrel 75 mg tablet 75 mg PO DAILY #19 tabs 08/26/23
Home Medication Changes
Pending Results: No
== END 2023-08-26 18:40 | disposition home health service (06) ==
LOC: 4 WEST ACU 01:00
PROVIDERS: ADMITTING PHYSICIAN Hospitalist; ATTENDING PHYSICIAN Hospitalist; CONSULT PHYSICIAN Psychiatry & Neurology Neurology; EMERGENCY PHYSICIAN Emergency Medicine; FAMILY PHYSICIAN Family Medicine; OTHER PHYSICIAN Neurological Surgery
DX: G45.9 Transient cerebral ischemic attack, unspecified (principal); R41.0 Disorientation, unspecified; I11.9 Hypertensive heart disease without heart failure; I16.0 Hypertensive urgency; R26.2 Difficulty in walking, not elsewhere classified; R53.1 Weakness; I25.10 Atherosclerotic heart disease of native coronary artery without angina pectoris; R00.1 Bradycardia, unspecified; I16.1 Hypertensive emergency; E78.5 Hyperlipidemia, unspecified; D64.9 Anemia, unspecified; M25.78 Osteophyte, vertebrae; M50.022 Cervical disc disorder at C5-C6 level with myelopathy; M48.02 Spinal stenosis, cervical region; Z79.82 Long term (current) use of aspirin; G93.40 Encephalopathy, unspecified; Z79.02 Long term (current) use of antithrombotics/antiplatelets
CPT/HCPCS: 70450; 70544; 70548; 70551; 71046; 72141; 80053; 80061; 82607; 83036; 84443; 85025; 85610; 85730; 92610; 93005; 97163; 97166; 99285; A9585; G0378

== ENCOUNTER → 2023-11-09 11:01 | Outpatient (REF) | payer OTHER, SELFPAY | LOC: RCS 11:01 | PROVIDERS: ATTENDING PHYSICIAN Internal Medicine Cardiovascular Disease; FAMILY PHYSICIAN Family Medicine | DX: G45.9 Transient cerebral ischemic attack, unspecified (principal) | CPT/HCPCS: 93306 ==